=== PATIENT | female | born 1935 | race Caucasian/White ===

== ENCOUNTER 2018-10-31 21:01 | Emergency (ER) | payer MEDICARE, MEDICAID ==
[~2018-10-31] VITALS: Ht 162.6 cm; Wt 72.6 kg
[2018-10-31] MEDS ORDERED: LIDOCAINE 4% TOPICAL 50 ML BOTTLE ONE (22:23)
[2018-10-31] MEDS ORDERED: LIDOCAINE 4% TOPICAL 50 ML BOTTLE TP ONE (22:30)
[2018-10-31 22:53] VITALS: BP 148/80
--- NOTE | 2018-10-31 22:53 | NUR ---
Patient discharged to home in stable conditon. Written and verbal after care instructions given. Patient verbalizes understanding of instructions.
== END 2018-10-31 22:53 | disposition home or self-care (01) ==
LOC: ER 21:04
DX: R04.0 Epistaxis (principal); I10 Essential (primary) hypertension; E78.5 Hyperlipidemia, unspecified; E11.9 Type 2 diabetes mellitus without complications; I48.91 Unspecified atrial fibrillation
CPT/HCPCS: 30901; A4663

== ENCOUNTER 2018-12-02 13:00 | Emergency (ER) | payer MEDICARE, MEDICAID ==
[~2018-12-02] VITALS: Ht 152.4 cm; Wt 72.6 kg
[2018-12-02] MEDS ORDERED: ACETAMINOPHEN/CODEINE 300-30 MG TABLET PO ONE (13:15)
[2018-12-02] MEDS ORDERED: ACETAMINOPHEN/CODEINE 300-30 MG TABLET ONE (13:50)
--- NOTE | 2018-12-02 14:31 | NUR ---
Patient discharged to home in stable conditon. Written and verbal after care instructions given. Patient verbalizes understanding of instructions.PT WALKS IN STEADY GAIT. PT ACCOMPANIED BY DAUGHTER, NO SIGN OF DISTRESS.
[2018-12-02 14:32] VITALS: BP 159/91
== END 2018-12-02 14:33 | disposition home or self-care (01) ==
LOC: ER 13:00
DX: S00.03XA Contusion of scalp, initial encounter (principal); S63.501A Unspecified sprain of right wrist, initial encounter; S16.1XXA Strain of muscle, fascia and tendon at neck level, initial encounter; I48.91 Unspecified atrial fibrillation; I10 Essential (primary) hypertension; E78.5 Hyperlipidemia, unspecified; W18.30XA Fall on same level, unspecified, initial encounter; Y93.89 Activity, other specified; Y92.89 Other specified places as the place of occurrence of the external cause; Y99.8 Other external cause status
CPT/HCPCS: 70450; 72125; 73110; A4663

== ENCOUNTER 2020-11-11 14:46 | Inpatient (IN) | payer MEDICARE, OTHER ==
[~2020-11-11] VITALS: Ht 152.4 cm; Wt 62.6 kg
--- NOTE | 2020-11-11 14:51 | NUR ---
Patient brought in by [facility] for altered LOC and High Blood Sugar
[2020-11-11] MEDS ORDERED: LIPA1CAP15 PO (15:05)
[2020-11-11] MEDS ORDERED: FEBU40TA PO (15:05)
[2020-11-11] MEDS ORDERED: NITR1PAT67 TD (15:05)
[2020-11-11] MEDS ORDERED: FURO-152 PO (15:05)
[2020-11-11] MEDS ORDERED: RIVA10TA PO (15:05)
[2020-11-11] MEDS ORDERED: POTA10CA43 PO (15:05)
[2020-11-11] MEDS ORDERED: FOLI0.8T2 PO (15:05)
[2020-11-11] MEDS ORDERED: CHOL-9 PO (15:05)
[2020-11-11] MEDS ORDERED: DEXL60CA3 PO (15:05)
[2020-11-11] MEDS ORDERED: PITA4TAB PO (15:05)
[2020-11-11] MEDS ORDERED: MEMA1CAP3 PO (15:05)
[2020-11-11] MEDS ORDERED: METO50TA7 PO (15:05)
[2020-11-11] MEDS ORDERED: CINA30TA2 PO (15:05)
[2020-11-11] MEDS ORDERED: LINA5TAB PO (15:05)
[2020-11-11] MEDS ORDERED: HYDR100T27 PO (15:05)
[2020-11-11] MEDS ORDERED: IV NORMAL SALINE 1000 ML BAG IV ONE (15:15)
[2020-11-11 16:01] LABS: BASOPHILS % (AUTO) 0.1 % (0.0-2.0); HEMATOCRIT 42.9 % (31.2-41.9); HEMOGLOBIN 13.9 g/dL (10.9-14.3); LYMPHOCYTES # (AUTO) 0.7 K/uL (20.0-40.0); MEAN CORPUSCULAR HEMOGLOBIN 29.2 uug (24.7-32.8); MEAN CORPUSCULAR HGB CONC 32 g/dL (32.3-35.6); MEAN CORPUSCULAR VOLUME 90.6 fL (75.5-95.3); MONOCYTES # (AUTO) 0.5 K/uL (2.0-10.0); NEUTROPHILS # (AUTO) 11.9 K/uL (1.8-8.9); NEUTROPHILS % (AUTO) 90.9 % (38.5-71.5); PLATELET COUNT (AUTO) 254 K/uL (179-408); RED BLOOD CELL COUNT(AUTO) 4.74 MIL/uL (3.63-4.92); WHITE BLOOD COUNT (AUTO) 13.1 K/uL (3.8-11.8)
[2020-11-11 16:19] LABS: CARBON DIOXIDE 23 mmol/L (21-32); CHLORIDE 108 mmol/L (98-107); CREATININE 2.8 mg/dL (0.6-1.3); POTASSIUM 5.5 mmol/L (3.5-5.1)
[2020-11-11 16:21] LABS: GLUCOSE 479 mg/dL (74-106)
[2020-11-11 16:22] LABS: UREA NITROGEN, BLOOD 101 mg/dL (7-18)
[2020-11-11 16:38] LABS: ALANINE AMINOTRANSFERASE 29 U/L (14-59); ALKALINE PHOSPHATASE 164 U/L (50-136); ASPARTATE AMINOTRANSFERASE 17 U/L (15-37); BILIRUBIN,DIRECT 0.2 mg/dL (0.0-0.2); BILIRUBIN,TOTAL 0.5 mg/dL (0.2-1.0); TOTAL PROTEIN, SERUM 7.2 g/dL (6.4-8.2)
[2020-11-11] MEDS ORDERED: VANCOMYCIN IV 1,000 MG in IV DEXTROSE 5% 250 ML IV ONE (16:45)
[2020-11-11] MEDS ORDERED: CEFEPIME HCL 1 G in IV DEXTROSE 5% 50 ML IV ONE (16:45)
--- NOTE | 2020-11-11 17:00 | NUR ---
partial thickness sacral ulcer noted, urine collected via straight cath, cloudy urine noted and reported
[2020-11-11] MEDS ORDERED: CEFEPIME HCL 1 G VIAL ONE (17:04)
[2020-11-11] MEDS ORDERED: VANCOMYCIN IV 200 ML ONE (17:05)
--- NOTE | 2020-11-11 17:15 | NUR ---
MD Diaz paged for panel call at this tiime, awaiting return call
--- NOTE | 2020-11-11 17:27 | NUR ---
family states she gave two insurance cards to [facility], [facility] called but claims they only remember receiving 1 card, will inform family
[2020-11-11 17:58] LABS: *BILIRUBIN,URIN NEGATIVE (NEGATIVE); *BLOOD, URINE NEGATIVE (NEGATIVE); *CLARITY,URINE SLIGHTLY CLOUDY (CLEAR); *COLOR,URINE YELLOW (YELLOW); *KETONES,URINE NEGATIVE (NEGATIVE); *UROBILINOGEN,URINE 0.2 E.U./dl (NORMAL); LEUKOCYTE ESTERASE ,URINE TRACE (NEGATIVE); NITRITE, URINE NEGATIVE (NEGATIVE); UGLUCOSE 1+ (NEGATIVE)
[2020-11-11] MEDS ORDERED: DEXTROSE 50% 50 ML DISP.SYRIN IV PRN ×2 (18:00→22:00)
[2020-11-11] MEDS ORDERED: HYDROCODONE/APAP 5-325MG TABLET PO PRN (18:00)
[2020-11-11] MEDS ORDERED: ONDANSETRON 4 MG/2 ML VIAL IV PRN (18:00)
[2020-11-11] MEDS ORDERED: MAGNESIUM HYDROXIDE 30 ML LIQUID UDC PO PRN (18:00)
[2020-11-11] MEDS ORDERED: ACETAMINOPHEN 325 MG TABLET PO PRN (18:00)
[2020-11-11] MEDS ORDERED: INSULIN REGULAR, HUMAN 300 UNIT/3 ML VIAL SQ PRN (18:00)
[2020-11-11 18:25] LABS: RBC,URINE 0-3 /HPF (0-3)
[2020-11-11 18:26] LABS: SQUAMOUS EPITHELIAL CELL,UR FEW /HPF (NONE SEEN)
--- NOTE | 2020-11-11 19:12 | NUR ---
Called Med-surg/telemetry for room for patient. Patient will be going to room 306 per VINCE Addison.
--- NOTE | 2020-11-11 20:00 | NUR ---
Report given to VINCE Garcia, patient will be going to telemetry room 306.
--- NOTE | 2020-11-11 20:09 | NUR ---
Pt. admitted to telemetry 306, under care of Dr. Browning and VINCE Garcia. Belongs List completed, original paperwork with patient, transported upstairs via gurney.
--- NOTE | 2020-11-11 20:15 | NUR ---
Admitted patient from ER via gurney accompanied by ER nurse Bill with diagnosis of Sepsis/UTI and PEPE. No s/s of respiratory distress, no pain or discomfort noted. Transferred to bed. Belongings checked with the patient. Safety measures initiated. Admission care rendered.
[2020-11-11 20:24] VITALS: BP 143/90
[2020-11-11] MEDS ORDERED: CEFEPIME HCL 1 G in IV DEXTROSE 5% 50 ML IV SCH ×4 (21:00)
[2020-11-11] MEDS ORDERED: BLOOD SUGAR DIAGNOSTIC 1 EACH STRIP VI SCH (21:00)
[2020-11-11] MEDS: IV NS 1000 ML 1,000 ML IV PRN (21:07)
--- NOTE | 2020-11-11 21:48 | NUR ---
Blood sugar is 457. 10 units of insulin given. Insulin increased to moderate scale per MD.
[2020-11-12] VITALS: BP 118/82
[2020-11-12 01:06] VITALS: BP 146/90
[2020-11-12 02:58] LABS: HEMATOCRIT 39.1 % (31.2-41.9); HEMOGLOBIN 12.6 g/dL (10.9-14.3); LYMPHOCYTES # (AUTO) 0.5 K/uL (20.0-40.0); LYMPHOCYTES % (AUTO) 4.6 % (20.5-51.5); MEAN CORPUSCULAR HEMOGLOBIN 29.5 uug (24.7-32.8); MEAN CORPUSCULAR HGB CONC 32 g/dL (32.3-35.6); MEAN CORPUSCULAR VOLUME 91.3 fL (75.5-95.3); MONOCYTES # (AUTO) 0.6 K/uL (2.0-10.0); MONOCYTES % (AUTO) 5.3 % (0.0-11.0); NEUTROPHILS # (AUTO) 10.1 K/uL (1.8-8.9); NEUTROPHILS % (AUTO) 90.1 % (38.5-71.5); PLATELET COUNT (AUTO) 251 K/uL (179-408); RED BLOOD CELL COUNT(AUTO) 4.28 MIL/uL (3.63-4.92); WHITE BLOOD COUNT (AUTO) 11.2 K/uL (3.8-11.8)
[2020-11-12 03:03] LABS: CARBON DIOXIDE 24 mmol/L (21-32); CHLORIDE 111 mmol/L (98-107); CHOLESTEROL 190 mg/dL (<200); CREATININE 2.7 mg/dL (0.6-1.3); HDL CHOLESTEROL 29 mg/dL (40-60); MAGNESIUM 2.5 mg/dL (1.8-2.4); PHOSPHOROUS 4.9 mg/dL (2.5-4.9); POTASSIUM 5.1 mmol/L (3.5-5.1); TRIGLYCERIDES 209 MG/DL (30-150)
[2020-11-12 03:23] LABS: GLUCOSE 414 mg/dL (74-106)
[2020-11-12 03:24] LABS: UREA NITROGEN, BLOOD 99 mg/dL (7-18)
[2020-11-12 03:34] LABS: THYROID STIMULATING HORMONE 0.904 mIU/mL (0.358-3.740)
--- NOTE | 2020-11-12 06:54 | NUR ---
Pt in bed, awake, obeys commands, speech is unclear. Pt shows no s/s of respiratory distress, no pain or discomfort noted, safety measures in place at all times, call light within reach, wound dressing done, all needs attended.
[2020-11-12] MEDS: BLOOD SUGAR DIAGNOSTIC 1 EACH STRIP VI SCH ×4 (07:06→21:00)
--- NOTE | 2020-11-12 07:30 | NUR ---
receive report on pt, awake in bed resting. pt on 3L O2 saturating at 100%, no signs of distress noted, no pain reported at this time. pt on tele monitor controlled a-fib. Pt has sacral decub covered, left lower leg scab, left outer labia skin tear. pt is wearing diaper, IV access on the left AC SL, right AC IVF fluids running at 75cc. Bed in low and locked position, call light within reach, safety and fall precautions in place, bed alarm on. Will continue to monitor.
[2020-11-12] MEDS: FOLIC ACID/VITAMIN B COMP W-C TABLET PO SCH (08:25)
[2020-11-12] MEDS: CINACALCET HCL 30 MG TABLET PO SCH (08:25)
[2020-11-12] MEDS ORDERED: METOPROLOL TARTRATE 5 MG/5 ML VIAL IVP ONE ×2 (08:45→20:15)
[2020-11-12] MEDS ORDERED: METOPROLOL SUCCINATE XL 50 MG TAB.SR.24H PO SCH ×4 (09:00)
[2020-11-12] MEDS ORDERED: RIVAROXABAN 10 MG TABLET PO SCH (09:00)
[2020-11-12] MEDS: METOPROLOL SUCCINATE XL 50 MG TAB.SR.24H PO SCH ×2 (09:56→22:40)
[2020-11-12] MEDS: INSULIN REGULAR, HUMAN 300 UNIT/3 ML VIAL SQ PRN ×3 (10:28→18:29)
[2020-11-12] MEDS ORDERED: BENZOCAINE/MENTH/CETYLPYRD LOZENGE MM PRN (11:30)
[2020-11-12] MEDS ORDERED: HEPARIN SODIUM,PORCINE 5,000 UNITS/ML VIAL SQ SCH (11:30)
[2020-11-12 11:46] VITALS: BP 163/90
[2020-11-12] MEDS: hydrALAZINE HCL 50 MG TABLET PO SCH ×2 (12:05→22:41)
[2020-11-12] MEDS: IV NS 1000 ML 1,000 ML IV PRN (12:08)
--- NOTE | 2020-11-12 12:24 | NUR ---
WOUND CARE CONSULT: PT PRESENTS WITH DISCOLORATION TO LEFT LATERAL LOWER LEG AND INTACT DEEP TISSUE INJURY TO LEFT LATERAL ANKLE WELL REDNESS RASH TO PERINEUM, PERIANAL AREA AND UNSTAGEABLE SACRAL ULCER, PRESENT ON ADMISSION. RECOMMEND SURGICAL CONSULT. DR LEAVITT NOTIFIED OF CONSULT REQUEST. RECOMMENDATIONS MADE FOR SKIN PROTECTION. DISCUSSED WITH NURSING STAFF. FIRST STEP LOW AIRLOSS MATTRESS IS ON ORDER. IN AGREEMENT WITH PLAN OF CARE. Addendum: 11/12/20 at 1226 by SYL ZAMARRIPA RN Amended: Links added.
[2020-11-12] MEDS ORDERED: MECL-159 PO (13:03)
[2020-11-12] MEDS ORDERED: FOLI0.8T2 PO (13:04)
[2020-11-12 16:00] VITALS: BP 160/74
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
[2020-11-12] MEDS: CEFEPIME HCL 0.5 G in IV DEXTROSE 5% 50 ML IV SCH (16:37)
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
[2020-11-12] MEDS: RIVAROXABAN 15 MG TABLET PO SCH (18:09)
--- NOTE | 2020-11-12 18:58 | NUR ---
pt resting in bed, all medications given al ordered, pt confused, cooperative. Pt has a left leg scab, left outer labia skin tear, sacrum decub, left ankle tear photos in chart. pt on tele monitor a fib. pt on first step mattress, bergeron, IV access right AC 22g, Left AC 22g IVF infusing NS 75cc. pt on 3L O2 saturation 93%, no signs of distress noted, no reports of pain. Bed in low and locked position, call light within reach, fall and safety precautions in place. Will endorse to oncoming nurse.
--- NOTE | 2020-11-12 19:20 | NUR ---
Received patient in bed, asleep, opens eyes when called or touched but closes eyes right away. Non verbal. No s/s of respiratory distress, no pain or discomfort noted, safety measures initiated, will continue to monitor.
--- NOTE | 2020-11-12 20:15 | NUR ---
Called Dr. Tejeda to report patient's rapid afib. Received an order of Metoprolol 5mg IV push x 1.
[2020-11-12 20:25] VITALS: BP 151/74
--- NOTE | 2020-11-12 20:33 | NUR ---
Was called up to MS/TELE floor to administer IV Metoprolol 5mg to patient. Verified one time order. BP at time was 142/78 - HR 107. IV line patent. Advised RN to monitor BP closely following administration.
[2020-11-12 23:59] VITALS: BP 134/76
[2020-11-13] MEDS: IV NS 1000 ML 1,000 ML IV PRN (01:53)
[2020-11-13 04:43] VITALS: BP 158/94
[2020-11-13 06:32] LABS: HEMATOCRIT 36.4 % (31.2-41.9); HEMOGLOBIN 11.7 g/dL (10.9-14.3); LYMPHOCYTES # (AUTO) 0.5 K/uL (20.0-40.0); LYMPHOCYTES % (AUTO) 3.8 % (20.5-51.5); MEAN CORPUSCULAR HEMOGLOBIN 29.3 uug (24.7-32.8); MEAN CORPUSCULAR HGB CONC 32 g/dL (32.3-35.6); MONOCYTES # (AUTO) 0.9 K/uL (2.0-10.0); NEUTROPHILS # (AUTO) 11.5 K/uL (1.8-8.9); NEUTROPHILS % (AUTO) 89.2 % (38.5-71.5); PLATELET COUNT (AUTO) 181 K/uL (179-408); WHITE BLOOD COUNT (AUTO) 12.8 K/uL (3.8-11.8)
[2020-11-13] MEDS: BLOOD SUGAR DIAGNOSTIC 1 EACH STRIP VI SCH ×4 (06:43→21:26)
[2020-11-13 06:44] LABS: ALANINE AMINOTRANSFERASE 101 U/L (14-59); ALKALINE PHOSPHATASE 180 U/L (50-136); ASPARTATE AMINOTRANSFERASE 23 U/L (15-37); BILIRUBIN,TOTAL 0.5 mg/dL (0.2-1.0); CARBON DIOXIDE 23 mmol/L (21-32); CHLORIDE 119 mmol/L (98-107); CREATINE KINASE, TOTAL 21 U/L (26-192); CREATININE 2.1 mg/dL (0.6-1.3); GLUCOSE 71 mg/dL (74-106); MAGNESIUM 2.2 mg/dL (1.8-2.4); POTASSIUM 4.1 mmol/L (3.5-5.1); TOTAL PROTEIN, SERUM 5.5 g/dL (6.4-8.2)
[2020-11-13] MEDS: hydrALAZINE HCL 50 MG TABLET PO SCH ×2 (07:03→13:29)
[2020-11-13 07:10] LABS: UREA NITROGEN, BLOOD 83 mg/dL (7-18)
--- NOTE | 2020-11-13 07:55 | NUR ---
Pt awake, no s/s of respiratory distress, no pain or discomfort noted, on 3LPM oxygen saturating 93%. IV access intact and patent, Boswell draining well, safety measures in place.
--- NOTE | 2020-11-13 08:00 | NUR ---
Awake, alert, oriented to name, follows command. On moderate high back rest. O2 at 3L/NC. IVF infusing. Boswell catheter to drainage bag with yellow urine
[2020-11-13] MEDS ORDERED: IV 1/2NS 1000 ML 1,000 ML IV PRN (08:15)
[2020-11-13] MEDS: FOLIC ACID/VITAMIN B COMP W-C TABLET PO SCH (08:59)
[2020-11-13] MEDS: CINACALCET HCL 30 MG TABLET PO SCH (08:59)
[2020-11-13] MEDS ORDERED: VANCOMYCIN IV 750 MG in IV DEXTROSE 5% 250 ML IV SCH ×2 (09:00→17:00)
[2020-11-13] MEDS: METOPROLOL SUCCINATE XL 50 MG TAB.SR.24H PO SCH ×2 (09:02→21:29)
[2020-11-13] MEDS: NYSTATIN POWDER 15 GM BOTTLE TOP SCH ×3 (09:02→17:15)
--- NOTE | 2020-11-13 10:00 | NUR ---
Bedbath given, wound care done. Repositioned in bed comfortably
[2020-11-13 11:33] VITALS: BP 142/83
[2020-11-13] MEDS: INSULIN REGULAR, HUMAN 300 UNIT/3 ML VIAL SQ PRN ×2 (12:20→17:18)
[2020-11-13] MEDS: DILTIAZEM HCL CD 120 MG CAP.SR.24H PO SCH (14:53)
--- NOTE | 2020-11-13 14:55 | NUR ---
Dr. Juarez informed of HR 100-130 Afib. Cardizem po given as ordered
[2020-11-13 15:15] VITALS: BP 150/82
[2020-11-13] MEDS: CEFEPIME HCL 0.5 G in IV DEXTROSE 5% 50 ML IV SCH (17:15)
[2020-11-13] MEDS: PROTEIN SUPPLEMENT (PROSTAT) 30 ML LIQUID PO SCH (17:16)
[2020-11-13] MEDS: RIVAROXABAN 15 MG TABLET PO SCH (17:18)
--- NOTE | 2020-11-13 18:26 | NUR ---
HR 102 Afib. IVF discontinued. Repositioned comfortably
--- NOTE | 2020-11-13 19:35 | NUR ---
Sleeping during initial rounds, HOB on High Fowlers position to facilitate easy breathing with continuos 3L O2 bumped to 4L due to low saturation of 87%-96%. Remain A-fib on the monitor with HR 87bpm. F/C intact and patent draining qs clear yellow output per gravity. Continue to monitor.
[2020-11-13 20:20] VITALS: BP 132/68
[2020-11-13] MEDS: INSULIN REGULAR, HUMAN 300 UNITS/3 ML VIAL SQ PRN (21:27)
[2020-11-14 00:08] VITALS: BP 144/68
[2020-11-14 05:09] VITALS: BP 156/78
[2020-11-14 06:18] LABS: EOSINOPHILS % (AUTO) 0.2 % (0.0-7.0); HEMATOCRIT 39.2 % (31.2-41.9); HEMOGLOBIN 12.6 g/dL (10.9-14.3); LYMPHOCYTES # (AUTO) 0.4 K/uL (20.0-40.0); LYMPHOCYTES % (AUTO) 3.8 % (20.5-51.5); MEAN CORPUSCULAR HEMOGLOBIN 29.2 uug (24.7-32.8); MEAN CORPUSCULAR HGB CONC 32 g/dL (32.3-35.6); MONOCYTES # (AUTO) 0.8 K/uL (2.0-10.0); MONOCYTES % (AUTO) 6.4 % (0.0-11.0); NEUTROPHILS # (AUTO) 10.6 K/uL (1.8-8.9); NEUTROPHILS % (AUTO) 89.6 % (38.5-71.5); PLATELET COUNT (AUTO) 157 K/uL (179-408); RED BLOOD CELL COUNT(AUTO) 4.31 MIL/uL (3.63-4.92); WHITE BLOOD COUNT (AUTO) 11.8 K/uL (3.8-11.8)
--- NOTE | 2020-11-14 06:23 | NUR ---
Shift End Report: Slept comfortably. Controlled A-Fib throughout the night. O2 sat WNL with O2 at 4L/min. No significant event reported all night. Continue care as planned.
[2020-11-14] MEDS: BLOOD SUGAR DIAGNOSTIC 1 EACH STRIP VI SCH ×4 (06:42→20:58)
[2020-11-14 06:52] LABS: CARBON DIOXIDE 22 mmol/L (21-32); CHLORIDE 118 mmol/L (98-107); CREATININE 1.6 mg/dL (0.6-1.3); GLUCOSE 149 mg/dL (74-106); POTASSIUM 4.1 mmol/L (3.5-5.1); UREA NITROGEN, BLOOD 72 mg/dL (7-18)
[2020-11-14] MEDS: INSULIN REGULAR, HUMAN 300 UNIT/3 ML VIAL SQ PRN ×3 (08:00→16:44)
--- NOTE | 2020-11-14 08:00 | NUR ---
AWAKE ALERT AND RESPONDING APPROPRIATELY, COMFORTABLE WITH O2 AT 3L NC. DENIES PAIN AND SOB. AFIB ON MONITOR
[2020-11-14] MEDS: FOLIC ACID/VITAMIN B COMP W-C TABLET PO SCH (08:52)
[2020-11-14] MEDS: CINACALCET HCL 30 MG TABLET PO SCH (08:52)
[2020-11-14] MEDS: DILTIAZEM HCL CD 120 MG CAP.SR.24H PO SCH (08:54)
[2020-11-14] MEDS: PROTEIN SUPPLEMENT (PROSTAT) 30 ML LIQUID PO SCH ×2 (08:54→16:35)
[2020-11-14] MEDS: METOPROLOL SUCCINATE XL 50 MG TAB.SR.24H PO SCH ×2 (08:55→20:59)
[2020-11-14] MEDS: NYSTATIN POWDER 15 GM BOTTLE TOP SCH ×3 (08:56→16:36)
--- NOTE | 2020-11-14 12:00 | NUR ---
NO ACUTE CHANGE FROM PREVIOUS ASSESSMENT. GOOD PO INTAKE WITH MEALS. AFEBRILE
[2020-11-14 12:14] VITALS: BP 156/83
[2020-11-14] MEDS: IV 1/2NS 1000 ML 1,000 ML IV PRN (12:55)
[2020-11-14] MEDS: CEFTRIAXONE 1 G in IV DEXTROSE 5% 50 ML IV SCH (14:01)
--- NOTE | 2020-11-14 15:19 | NUR ---
SEEN BY DR SILVA NOTED LABS AND STARTED ON IV 1/2 NS AT 75 MLS/HR. WILL FOLLOW-UP LABS IN AM. NO SS OF [id number] PAIN OR DISTRESS. ELEVATED BP IN AM CONTINUE WITH BLOOD PRESSURE MEDS. REMAINS AFIB ON MONITOR
[2020-11-14 15:56] VITALS: BP 106/76
[2020-11-14] MEDS: RIVAROXABAN 15 MG TABLET PO SCH (17:04)
--- NOTE | 2020-11-14 19:58 | NUR ---
Received patient in bed awake and alert x2.Hob elevated.No s/s of distress noted with O2 at 3LPM via saturating at 97%.Iv on left FA 20g patent and intact with IVF 1/2 NS running at 75 ml/hr.Infusing well. Aspiration observed at all times. continue safety measures.Will continue to monitor.
[2020-11-14 20:48] VITALS: BP 154/86
[2020-11-14] MEDS: INSULIN REGULAR, HUMAN 300 UNITS/3 ML VIAL SQ PRN (21:05)
[2020-11-15 00:57] VITALS: BP 147/94
[2020-11-15] MEDS: IV 1/2NS 1000 ML 1,000 ML IV PRN (03:03)
--- NOTE | 2020-11-15 05:20 | NUR ---
Patient noted with BP 170/89 to 180/90.Patient denies pain .No s/s of distress noted.Dr Maurice made aware with new order given noted and carried out.
[2020-11-15 05:35] VITALS: BP 170/89
[2020-11-15] MEDS: CLONIDINE HCL 0.1 MG TABLET PO PRN (05:52)
[2020-11-15] MEDS: BLOOD SUGAR DIAGNOSTIC 1 EACH STRIP VI SCH ×4 (06:31→21:21)
[2020-11-15 06:45] LABS: CARBON DIOXIDE 22 mmol/L (21-32); CHLORIDE 116 mmol/L (98-107); CREATININE 1.5 mg/dL (0.6-1.3); GLUCOSE 203 mg/dL (74-106); POTASSIUM 4.1 mmol/L (3.5-5.1); UREA NITROGEN, BLOOD 64 mg/dL (7-18)
--- NOTE | 2020-11-15 07:25 | NUR ---
Received pt in bed, NO s/s of acute distress. A&O x 2 pt responds to name and touch. Pt is on 3L NC sating well. IV on LF 20 is intact and patent. Aspiration precautions in place. Will continue to monitor. Safety measures in place
[2020-11-15 08:00] VITALS: BP 144/58
[2020-11-15] MEDS: FOLIC ACID/VITAMIN B COMP W-C TABLET PO SCH (08:23)
[2020-11-15] MEDS: CINACALCET HCL 30 MG TABLET PO SCH (08:23)
[2020-11-15] MEDS: METOPROLOL SUCCINATE XL 50 MG TAB.SR.24H PO SCH ×2 (08:23→20:44)
[2020-11-15] MEDS: DILTIAZEM HCL CD 120 MG CAP.SR.24H PO SCH (08:23)
[2020-11-15] MEDS: PROTEIN SUPPLEMENT (PROSTAT) 30 ML LIQUID PO SCH ×2 (08:24→16:03)
[2020-11-15] MEDS: NYSTATIN POWDER 15 GM BOTTLE TOP SCH ×3 (08:24→16:03)
[2020-11-15] MEDS: INSULIN REGULAR, HUMAN 300 UNIT/3 ML VIAL SQ PRN ×2 (11:03→16:14)
[2020-11-15 11:38] VITALS: BP 149/85
[2020-11-15] MEDS: CEFTRIAXONE 1 G in IV DEXTROSE 5% 50 ML IV SCH (13:45)
[2020-11-15] MEDS: RIVAROXABAN 15 MG TABLET PO SCH (17:34)
--- NOTE | 2020-11-15 18:39 | NUR ---
EOSR Pt is in bed comfortable, no S/S of acute distress, Pt is on 3L NC sating at 94-96%. A&O x 2, pt responds to name and touch. IV on left FA 20g is patent and flushes well. Wound care completed. All needs met throughout shift and safety measures in place. Medications given as ordered. Will endorse to oncoming nurse
[2020-11-15 20:00] VITALS: BP 121/91
--- NOTE | 2020-11-15 21:00 | NUR ---
PATIENT ALERT NAME, NO SOB NO CHEST PAIN, PATIENT ON TELE MONITOR SINUS RHYTHM AT THIS TIME. PATIENT BP STABLE AT THIS TIME, DENIES PAIN AT THIS TIME. PATIENT JUAREZ CATH PATENT DRAINING WITH YELLOW COLOR URINE IN MODERATE AMOUNT. PATIENT BILATERAL ARMS SWELLING, ELEVATED WITH PILLOW. CONT TO MONITOR. Addendum: 11/17/20 at 0450 by RL FRANK RN PATIENT ALERT NAME, NO SOB NO CHEST PAIN, PATIENT ON TELE MONITOR SINUS RHYTHM AT THIS TIME. PATIENT BP STABLE AT THIS TIME, DENIES PAIN AT THIS TIME. PATIENT JUAREZ CATH PATENT DRAINING WITH YELLOW COLOR URINE IN MODERATE AMOUNT. PATIENT BILATERAL ARMS SWELLING, ELEVATED WITH PILLOW. CONT TO MONITOR. ERROR IN CHARTING.
--- NOTE | 2020-11-15 21:00 | NUR ---
PATIENT ALERT NAME, NO SOB NO CHEST PAIN, PATIENT ON TELE MONITOR A FIB CONTROL AT THIS TIME. PATIENT BP STABLE AT THIS TIME, DENIES PAIN AT THIS TIME. PATIENT JUAREZ CATH PATENT DRAINING WITH YELLOW COLOR URINE IN MODERATE AMOUNT. PATIENT BILATERAL ARMS SWELLING, ELEVATED WITH PILLOW. CONT TO MONITOR.
[2020-11-15] MEDS: INSULIN REGULAR, HUMAN 300 UNITS/3 ML VIAL SQ PRN (21:14)
[2020-11-16] VITALS: BP 165/80
[2020-11-16] MEDS: CLONIDINE HCL 0.1 MG TABLET PO PRN (01:08)
[2020-11-16 04:00] VITALS: BP_SYST 155; BP_SYST 168; BP_DIAS 82; BP_DIAS 88
[2020-11-16] MEDS: BLOOD SUGAR DIAGNOSTIC 1 EACH STRIP VI SCH ×4 (06:14→21:10)
[2020-11-16 06:17] LABS: EOSINOPHILS # (AUTO) 0.1 K/uL (0.0-0.7); HEMATOCRIT 35.6 % (31.2-41.9); HEMOGLOBIN 11.5 g/dL (10.9-14.3); LYMPHOCYTES # (AUTO) 0.6 K/uL (20.0-40.0); MEAN CORPUSCULAR HEMOGLOBIN 29.4 uug (24.7-32.8); MEAN CORPUSCULAR HGB CONC 32 g/dL (32.3-35.6); MEAN CORPUSCULAR VOLUME 91.1 fL (75.5-95.3); MONOCYTES # (AUTO) 0.8 K/uL (2.0-10.0); MONOCYTES % (AUTO) 7.4 % (0.0-11.0); NEUTROPHILS # (AUTO) 9.3 K/uL (1.8-8.9); NEUTROPHILS % (AUTO) 85.6 % (38.5-71.5); PLATELET COUNT (AUTO) 138 K/uL (179-408); RED BLOOD CELL COUNT(AUTO) 3.91 MIL/uL (3.63-4.92); WHITE BLOOD COUNT (AUTO) 10.8 K/uL (3.8-11.8)
[2020-11-16 06:48] LABS: BILIRUBIN,TOTAL 0.4 mg/dL (0.2-1.0); CREATININE 1.3 mg/dL (0.6-1.3); PHOSPHOROUS 3.2 mg/dL (2.5-4.9); POTASSIUM 3.9 mmol/L (3.5-5.1); TOTAL PROTEIN, SERUM 5.1 g/dL (6.4-8.2)
--- NOTE | 2020-11-16 07:00 | NUR ---
PATIENT AWAKE NO SOB NO CHEST PAIN, PATIENT HAS NO COMPLAIN OF PAIN, WITH EPISODE OF ELEVATED BP, MEDICATED ORDERED WITH EFFECTIVE RESULTS, TURN AND REPOSITION, TX DONE ON SACRUM WOUND, JUAREZ CATH PATENT, CONT TO MONITOR.
--- NOTE | 2020-11-16 07:30 | NUR ---
Received patient in bed dozing off intermittently. Patient is alert and oriented times 2. Patient is on 3L of oxygen saturating at 94%. No sign of distress noted at this time. Safety precautions are in place. Will continue to monitor.
[2020-11-16] MEDS: FOLIC ACID/VITAMIN B COMP W-C TABLET PO SCH (08:47)
[2020-11-16] MEDS: CINACALCET HCL 30 MG TABLET PO SCH (08:47)
[2020-11-16] MEDS: DILTIAZEM HCL CD 120 MG CAP.SR.24H PO SCH (08:56)
[2020-11-16] MEDS: GLUCERNA SHAKE VANILLA 237 ML CAN PO SCH (08:56)
[2020-11-16] MEDS: METOPROLOL SUCCINATE XL 50 MG TAB.SR.24H PO SCH ×2 (08:56→21:04)
[2020-11-16] MEDS: PROTEIN SUPPLEMENT (PROSTAT) 30 ML LIQUID PO SCH ×2 (08:57→17:25)
[2020-11-16] MEDS: INSULIN REGULAR, HUMAN 300 UNIT/3 ML VIAL SQ PRN ×3 (08:59→17:25)
[2020-11-16] MEDS: NYSTATIN POWDER 15 GM BOTTLE TOP SCH ×3 (09:13→17:26)
[2020-11-16 11:52] VITALS: BP 157/88
[2020-11-16] MEDS: CEFTRIAXONE 1 G in IV DEXTROSE 5% 50 ML IV SCH (13:37)
[2020-11-16] MEDS: AMLODIPINE 5 MG TABLET PO SCH (13:42)
[2020-11-16 16:00] VITALS: BP 136/73
[2020-11-16] MEDS: RIVAROXABAN 15 MG TABLET PO SCH (17:24)
--- NOTE | 2020-11-16 18:59 | NUR ---
Patient left resting in bed. No sign of distress noted. Patient id on 3 L of oxygen NC. All medications given as ordered. Safety precautions in place. Will endorse to the oncoming nurse.
--- NOTE | 2020-11-16 19:30 | NUR ---
PATIENT AWAKE RESPONSE TO VERBAL COMMANDS. PATIENT HAS NO S/S OF PAIN NOR DISCOMFORT, TELE MONITOR SINUS RHYTHM AT THIS TIME. PATIENT V/S STABLE AT THIS TIME, TURN AND REPOSITION, CONT TO MONITOR. Addendum: 11/17/20 at 0447 by RL FRANK RN PATIENT AWAKE RESPONSE TO VERBAL COMMANDS. PATIENT HAS NO S/S OF PAIN NOR DISCOMFORT, TELE MONITOR SINUS RHYTHM AT THIS TIME. PATIENT V/S STABLE AT THIS TIME, TURN AND REPOSITION, CONT TO MONITOR. ERROR IN CHARTING.
[2020-11-16 20:12] VITALS: BP 158/78
[2020-11-16] MEDS: IV D5W 1000ML 1,000 ML IV PRN (21:10)
[2020-11-16] MEDS: INSULIN REGULAR, HUMAN 300 UNITS/3 ML VIAL SQ PRN (21:11)
[2020-11-17] VITALS: BP 169/80
[2020-11-17] MEDS: CLONIDINE HCL 0.1 MG TABLET PO PRN (01:24)
[2020-11-17 04:00] VITALS: BP 122/80
[2020-11-17] MEDS: Z GUARD REMEDY PASTE 57 GM TUBE TOP PRN ×2 (04:39→08:30)
--- NOTE | 2020-11-17 04:47 | NUR ---
PATIENT AWAKE NO SOB NO CHEST PAIN NOTED, TELE MONITOR A FIB CONTROL. PATIENT HAS EPISODE OF ELEVATED BP, GIVEN PRN MEDS. PATIENT BLOOD SUGAR SLIGHTLY ELEVATED, MD AWARE. PATIENT WAS TURNED AND REPOSITION, JUAREZ CATH PATENT, TX CONTINUE ON SACRUM WOUNDS, KEPT CLEAN DRY AND COMFORTABLE. CONT TO MONITOR BP.
[2020-11-17] MEDS: BLOOD SUGAR DIAGNOSTIC 1 EACH STRIP VI SCH ×4 (06:37→20:03)
[2020-11-17 07:42] LABS: BASOPHILS % (AUTO) 0.1 % (0.0-2.0); EOSINOPHILS # (AUTO) 0.1 K/uL (0.0-0.7); EOSINOPHILS % (AUTO) 1.2 % (0.0-7.0); HEMATOCRIT 35.7 % (31.2-41.9); HEMOGLOBIN 11.7 g/dL (10.9-14.3); LYMPHOCYTES # (AUTO) 0.6 K/uL (20.0-40.0); LYMPHOCYTES % (AUTO) 5.3 % (20.5-51.5); MEAN CORPUSCULAR HEMOGLOBIN 29.6 uug (24.7-32.8); MEAN CORPUSCULAR HGB CONC 33 g/dL (32.3-35.6); MEAN CORPUSCULAR VOLUME 90.5 fL (75.5-95.3); MONOCYTES % (AUTO) 8.8 % (0.0-11.0); NEUTROPHILS # (AUTO) 9.2 K/uL (1.8-8.9); NEUTROPHILS % (AUTO) 84.6 % (38.5-71.5); PLATELET COUNT (AUTO) 127 K/uL (179-408); RED BLOOD CELL COUNT(AUTO) 3.95 MIL/uL (3.63-4.92); WHITE BLOOD COUNT (AUTO) 10.9 K/uL (3.8-11.8)
[2020-11-17 08:00] LABS: CREATININE 1.2 mg/dL (0.6-1.3); MAGNESIUM 1.9 mg/dL (1.8-2.4); POTASSIUM 4.4 mmol/L (3.5-5.1)
[2020-11-17] MEDS: INSULIN REGULAR, HUMAN 300 UNIT/3 ML VIAL SQ PRN ×3 (08:06→17:09)
[2020-11-17 08:23] LABS: PHOSPHOROUS 2.7 mg/dL (2.5-4.9)
[2020-11-17] MEDS: FOLIC ACID/VITAMIN B COMP W-C TABLET PO SCH (08:24)
[2020-11-17] MEDS: CINACALCET HCL 30 MG TABLET PO SCH (08:24)
[2020-11-17] MEDS: GLUCERNA SHAKE VANILLA 237 ML CAN PO SCH (08:25)
[2020-11-17] MEDS: PROTEIN SUPPLEMENT (PROSTAT) 30 ML LIQUID PO SCH ×2 (08:25→17:11)
[2020-11-17] MEDS: AMLODIPINE 5 MG TABLET PO SCH (08:26)
[2020-11-17] MEDS: METOPROLOL SUCCINATE XL 50 MG TAB.SR.24H PO SCH ×2 (08:27→20:31)
[2020-11-17] MEDS: NYSTATIN POWDER 15 GM BOTTLE TOP SCH ×3 (08:28→17:11)
[2020-11-17] MEDS: DILTIAZEM HCL CD 120 MG CAP.SR.24H PO SCH (08:30)
[2020-11-17] MEDS ORDERED: NUT.237L28 PO (09:52)
[2020-11-17] MEDS ORDERED: PROT30LI PO (09:52)
[2020-11-17] MEDS ORDERED: AMLO-212 PO (09:52)
[2020-11-17] MEDS ORDERED: METO-357 PO (09:52)
[2020-11-17] MEDS ORDERED: DILT120C87 PO (09:52)
[2020-11-17] MEDS ORDERED: CEPH500C2 PO (09:57)
[2020-11-17] MEDS ORDERED: CEphaleXIN 500 MG CAPSULE PO SCH (10:00)
[2020-11-17] MEDS ORDERED: CEphaleXIN 250 MG CAPSULE PO SCH (10:08)
[2020-11-17] MEDS: IV D5W 1000ML 1,000 ML IV PRN (11:39)
[2020-11-17] MEDS ORDERED: FURO20TA4 PO (11:59)
[2020-11-17 12:00] VITALS: BP_SYST 119; BP_SYST 149; BP_DIAS 56; BP_DIAS 73
[2020-11-17 16:00] VITALS: BP 135/71
--- NOTE | 2020-11-17 16:00 | NUR ---
PATIENT REASSIGNMENT RECEIVED PATIENT AT THIS TIME ON FIRST STEP MATTRASS AWAKE ALERT TO SELF NODS HEAD WHEN SPOKEN TO DID NOT VERBALLY RESPOND SHE IS ON ROOM AIR WITH NO SHORTNESS OF BREATH AT THIS TIME ON FIRST STEP MATTRASS TURNED AND REPOSITIONED Q2H WITH WOUND CARE AND TREATMENTS ORDERED SHE HAS A JUAREZ CATH WITH ROMAN COLORED URINE NO HEMATURIA SAM UPPER EXTREMITIES SWOLLEN ELEVATED ON THE PILLOW SHE HAS A HEPLOCK ON HER LEFT FOREARM WITH IVF 5 PERCENT DEXTROSE INFUSING AT 60ML/HR WITH NO S/S OF INFILTERATION AT THIS TIME PATIENT IS BEING PREPPED FOR DISCHARGE AT THIS TIME.
--- NOTE | 2020-11-17 16:15 | NUR ---
PER THE PRESIDENT/[employer] EXPERIENCES DISCHARGE PLANNING PATIENT WILL BE DISCHARGED TO [facility] WILL BE PICKED UP BY THE AMBULANCE AT 1999 PATIENT IS BEING PREPPED FOR DISCHARGE AT THIS TIME PATIENTS DAUGHTER VIKASH AWARE THAT PATIENT WILL BE PICKED UP AT 1999 TO [place]
[2020-11-17] MEDS: RIVAROXABAN 15 MG TABLET PO SCH (17:10)
--- NOTE | 2020-11-17 18:21 | NUR ---
CALLED THE [facility] AND REPORT AND DISCHARGE INSTRUCTIONS GIVEN TO JANA FOR CONTINUING CARE PATIENT TO START ON KEFLEX TODAY FOR 5 DAYS AND SHE EXPRESSED UNDERSTANDING
[2020-11-17] MEDS: INSULIN REGULAR, HUMAN 300 UNITS/3 ML VIAL SQ PRN (20:05)
[2020-11-17 20:31] VITALS: BP 160/87
--- NOTE | 2020-11-17 20:38 | NUR ---
report given to jose davey, from [facility] regarding bp 160/86, bp meds given with effective results 143/83, blood sugar was 335 given 8 units reg. insulin as ordered.
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
== END 2020-11-17 21:01 | DRG 871 ==
LOC: ER 14:46 → TELE3 20:09 → MEDSURG3 11-17 10:53
PROVIDERS: ATTEND Nurse Practitioner Acute Care
DX: A41.9 Sepsis, unspecified organism (principal); G93.41 Metabolic encephalopathy; N17.0 Acute kidney failure with tubular necrosis; D68.69 Other thrombophilia; I48.20 Chronic atrial fibrillation, unspecified; I50.32 Chronic diastolic (congestive) heart failure; N39.0 Urinary tract infection, site not specified; E87.0 Hyperosmolality and hypernatremia; I13.0 Hypertensive heart and chronic kidney disease with heart failure and stage 1 through stage 4 chronic kidney disease, or unspecified chronic kidney disease; R65.20 Severe sepsis without septic shock; E78.5 Hyperlipidemia, unspecified; I27.20 Pulmonary hypertension, unspecified; I11.0 Hypertensive heart disease with heart failure; E87.5 Hyperkalemia; F03.90 Unspecified dementia, unspecified severity, without behavioral disturbance, psychotic disturbance, mood disturbance, and anxiety; N26.1 Atrophy of kidney (terminal); Z20.822 Contact with and (suspected) exposure to COVID-19; Z79.01 Long term (current) use of anticoagulants; N18.9 Chronic kidney disease, unspecified; L98.8 Other specified disorders of the skin and subcutaneous tissue; E11.22 Type 2 diabetes mellitus with diabetic chronic kidney disease; B96.20 Unspecified Escherichia coli [E. coli] as the cause of diseases classified elsewhere; I05.0 Rheumatic mitral stenosis
CPT/HCPCS: 36415; 70030-TC; 71045; 76770; 83605; 83735; 83970; 84100; 84155; 84165; 84443; 85025; 85730; 87040; 87077; 87086; 93005; 93307; A4663; G0378; J0692; J0696; J1815; J3370; J3490; J7030; J7060; J7070